=== PATIENT | female | born 1955 | race African-American/Black ===

== ENCOUNTER 2025-03-17 03:50 | Emergency (ER) | payer MEDICARE, MEDICAID ==
[~2025-03-17] VITALS: Ht 162.6 cm; Wt 63.0 kg
[2025-03-17 03:51] VITALS: BP 135/67; PULSE 67; RESP 16; TEMP 97.9; O2SAT 97
[2025-03-17] MEDS ORDERED: VALA500T33 PO (04:11)
--- NOTE | 2025-03-17 04:11 | ED.PDOC ---
General HPI Comments 69-year-old female presents to ER with vaginal complaint x1 week. Patient reports that she has been experiencing vaginal itching x3 days. Notes that she was diagnosed with genital herpes in 1989 and gets similar symptoms "twice a year" due to recurrent genital herpes that she states is treated with a 3 day course of valacyclovir. Denies any pain and presents to ER ambulatory, with steady gait, in no distress and notes she currently is not sexually active. Denies fever, body aches, chills, dysuria/changes in urination or any further symptoms/complaints Chief Complaint: Pelvic Pain Time Seen by MD: 03:58 Primary Care Provider: [facility] Reviewed notes: Nurses Notes, Medications, Allergies Allergies: Coded Allergies: NO KNOWN ALLERGIES (Unverified , 03/17/25) Home Meds Active Scripts Valacyclovir Hcl (Valacyclovir Hcl) 500 Mg Tab, 1 TAB PO BID for 3 Days, #6 TAB 0 Refills Prov:MATTJL HOLLIDAY 03/17/25 Information Source: Patient Mode of Arrival: Ambulatory Past Medical History Past Medical History (Other): Genital herpes- 1989 Surgical History: Denies all surgeries Family History Family History: Unknown Social History Smoker: Non-Smoker Alcohol: Denies ETOH Use Drugs: Denies Drug Use Lives In: Home Constitutional: denies: chills, diaphoresis, fatigue, fever, malaise, sweats, weakness, others EENTM: denies: blurred vision, double vision, ear bleeding, ear discharge, ear drainage, ear pain, ear ringing, eye pain, eye redness, hearing loss, mouth pain, mouth swelling, nasal discharge, nose bleeding, nose congestion, nose pain, photophobia, tearing, throat pain, throat swelling, voice changes, others Respiratory: denies: cough, hemoptysis, orthopnea, SOB at rest, shortness of breath, SOB with excertion, stridor, wheezing, others Cardiovascular: denies: chest pain, dizzy spells, diaphoresis, Dyspnea on exertion, edema, irregular heart beat, left arm pain, lightheadedness, palpitations, PND, syncope, others Gastrointestinal: denies: abdomen distended, abdominal pain, blood streaked bowels, constipated, diarrhea, dysphagia, difficulty swallowing, hematemesis, melena, nausea, poor appetite, poor fluid intake, rectal bleeding, rectal pain, vomiting, others Genitourinary: reports: others (As stated in HPI) Neurological: denies: dizziness, fainting, headache, left sided numbness, left sided weakness, numbness, paresthesia, pre-existing deficit, right sided numbness, right sided weakness, seizure, speech problems, tingling, tremors, weakness, others Musculoskeletal: denies: back pain, gout, joint pain, joint swelling, muscle pain, muscle stiffness, neck pain, others Integumetry: denies: bruises, change in color, change in hair/nails, dryness, laceration, lesions, lumps, rash, wounds, others Allergic/Immunocompromised: denies: Difficulty Healing, Frequent Infections, Hives, Itching, others Hematologic/Lymphatic: denies: anemia, blood clots, easy bleeding, easy bruising, swollen glands, others Endocrine: denies: excessive hunger, excessive sweating, excessive thirst, excessive urination, flushing, intolerance to cold, intolerance to heat, unexplained weight gain, unexplained weight loss, others Psychiatric: denies: anxiety, bipolar disorder, depression, hopeless, panic disorder, schizophrenia, sleepless, suicidal, others Physical Exam General Appearance: No Apparent Distress HEENT: PERRL/EOMI Neck: Full Range of Motion, Non-Tender, Normal Respiratory: Chest Non-Tender, Lungs Clear, No Accessory Muscle Use, No Respiratory Distress, Normal Breath Sounds Cardiovascular: No Murmur, No Gallop, Regular Rate/Rhythm Breast Exam: Deferred Gastrointestinal: Non Tender, No Pulsatile Mass, Soft Genitalia: Deferred Pelvic: Deferred Rectal: Deferred Extremities: Normal capillary refill, Normal range of motion Neurologic: Alert, resaw feeder II-XII nml as Tested, No Motor Deficits, Normal Affect, Normal Mood, No Sensory Deficits Cerebellar Function: Normal Reflexes: Normal Skin: Dry, Normal Color, Warm Lymphatic: No Adenopathy Was a procedure done? Was a procedure done?: No Sedation Sedation?: No Differential Diagnosis Kidney stone (Female): N/A Urinary Problem (Female): Pyelonephritis, Urinary retention, Urolithiasis, UTI, Vaginitis X-Ray, Labs, Meds, VS Vital Signs Date Time Temp Pulse Resp B/P (MAP) Pulse Ox O2 Delivery O2 Flow Rate FiO2 03/17/25 03:51 97.9 67 16 135/67 97 97.9 Lab Test 03/17/25 04:00 Range/Units Urine Color Light-yellow Yellow Urine Clarity Turbid H Clear Urine pH 5.5 5.0-9.0 Urine Specific [place] 1.019 1.001-1.035 Urine Protein Negative Negative Urine Ketones Negative Negative Urine Blood Negative Negative /uL Urine Nitrite Negative Negative Urine Bilirubin Negative Negative Urine Urobilinogen Normal Negative mg/dL Urine Leukocyte Esterase Negative Negative /uL Urine RBC None seen 0 - 4 /hpf Urine Microscopic WBC < 1 0-5 /HPF Urine Squamous Epithelial Cells Few <5 /hpf Urine Bacteria None seen None Seen /hpf Urine Glucose Normal Normal mg/dL Urinalysis reviewed without any significant abnormalities Advised to drink plenty of fluids Advised to follow up with PCP in 1-2 days Patient verbalized understanding and agreeable with current plan of care Advised to return to ER immediately if symptoms worsen Time of 1ST Reevaluation: 03:58 Reevaluation 1ST: N/A Patient Education/Counseling: Diagnosis, Treatment, Prognosis, Need For Follow Up Family Education/Counseling: No Family Present SEPSIS Sepsis Screen Date sepsis recognized/suspect: Mar 17, 2025 Time Sepsis recognized/suspect: 350 Recent Procedure: No On Antibiotic Therapy: No Respiratory Rate >20: No Heart Rate >90: No Temp<36 C (96.8 F) or >38.3 C: No SBP <90 or MAP <65 mmHG: No New Acute Mental Status Change: No Is the patient on CPAP, BIPAP,: No Vital Signs Date Time Temp Pulse Resp B/P (MAP) Pulse Ox O2 Delivery O2 Flow Rate FiO2 03/17/25 03:51 97.9 67 16 135/67 97 97.9 Departure 1 Departure Time of Disposition: 04:08 Impression: Primary Impression: Recurrent genital herpes Disposition: 01 HOME / SELF CARE / HOMELESS Condition: Stable e-Prescriptions Valacyclovir Hcl (Valacyclovir Hcl) 500 Mg Tab 1 TAB PO BID for 3 Days, #6 TAB 0 Refills Prov: JL GUTIERREZ 03/17/25 Discharged With: Self Critical Care Note Critical Care Time?: No Stability Stability form required: No Heart Score Heart Score: Heart Score Response (Comments) Value History N/A 0 EKG N/A 0 Age N/A 0 Risk Factors N/A 0 Troponin N/A 0 Total 0 JL GUTIERREZ Mar 17, 2025 04:11
[2025-03-17 04:35] LABS: Urine Protein, UAD Negative (Negative)
== END 2025-03-17 05:06 | disposition home or self-care (01) ==
LOC: ER 03:50
DX: A60.09 Herpesviral infection of other urogenital tract (principal); Z79.899 Other long term (current) drug therapy
CPT/HCPCS: 81001

== ENCOUNTER 2025-06-21 05:19 | Emergency (ER) | payer MEDICARE, MEDICAID ==
[~2025-06-21] VITALS: Ht 162.6 cm; Wt 64.5 kg
[~2025-06-21 05:19] MED LIST: VALA500T33 PO
--- NOTE | 2025-06-21 06:28 | DVH ---
EXAM: XY R KNEE 3V XRAY HISTORY: right knee pain COMPARISON: None TECHNIQUE: 3 views of the right knee were performed. FINDINGS: No acute fracture is identified about the right knee. No significant joint space narrowing. There is a small knee joint effusion. IMPRESSION: 1. No acute osseous abnormality. 2. Small knee joint effusion.
[2025-06-21 06:39] LABS: Hematocrit 38.4 % (36.0-46.0); Hemoglobin 13.4 g/dL (12.2-16.2); Mean Corpuscular Hemoglobin 29.2 pg (28.0-32.0); Mean Corpuscular Volume 83.9 fL (80.0-100.0); Nucleated Red Blood Cells % 0.2 %
[2025-06-21] MEDS ORDERED: DICL1GEL59 EX (07:01)
--- NOTE | 2025-06-21 07:02 | ED.PDOC ---
Musculoskeletal HPI Comments This is a pleasant 70-year-old female that presents with a MHx with a chief complaint of acute atraumatic right-sided knee pain She reports she has been experiencing rates it a knee pain since the summer with a an increase in intensity since May. The pain is exacerbated by cold weather and certain movements such as kneeling and walk. The pain is primarily located to the right knee and extends to the calf and thigh resembling a muscle cramp and that it is exacerbated with movement. Patient has not been taking medication for the symptoms noted above but has been using Epsom salt for relief. Able to bear weight on the leg Denies trauma to the knee or recent fall Denies skin color changes around the knee Denies masses around the knee Denies popping/locking/giving out of the knee Denies fever chills night sweats nausea vomiting Denies previous surgeries to the knee nor significant injury Chief Complaint: Lower Extremity Time Seen by MD: 06:28 Primary Care Provider: [facility] Reviewed Notes: Nurses Notes, Medications, Allergies Allergies: Coded Allergies: NO KNOWN ALLERGIES (Unverified , 03/17/25) Home Meds Active Scripts Valacyclovir Hcl (Valacyclovir Hcl) 500 Mg Tab, 1 TAB PO BID for 3 Days, #6 TAB 0 Refills Prov:JL GUTIERREZ 03/17/25 Information Source: Patient Mode of Arrival: Ambulatory Past Medical History PAST MEDICAL HISTORY: Denies Surgical History: Denies all surgeries EXCHANGE ENGINEER History: No Pertinent EXCHANGE ENGINEER History Family History Family History: Reviewed,noncontributory to illness, Unknown Social History Smoker: Non-Smoker Alcohol: Denies ETOH Use Drugs: Denies Drug Use Lives In: Home All Other Systems: Reviewed and Negative Physical Exam General Appearance: No Apparent Distress, Normal HEENT: Normal ENT Inspection, Pharynx Normal, TMs Normal Neck: Full Range of Motion, Non-Tender, Normal, Normal Inspection Respiratory: Chest Non-Tender, Lungs Clear, No Accessory Muscle Use, No Respiratory Distress, Normal Breath Sounds Cardiovascular: No Edema, No JVD, No Murmur, No Gallop, Normal Peripheral Pulses, Regular Rate/Rhythm Breast Exam: Deferred Gastrointestinal: No Organomegaly, Non Tender, No Pulsatile Mass, Normal Bowel Sounds, Soft Genitalia: Deferred Pelvic: Deferred Rectal: Deferred Extremities: No calf tenderness, Normal capillary refill, Normal inspection, Normal range of motion, Non-tender, No pedal edema Musculoskeletal : Location: Right Extremity Location: Knee (No deformity. No erythema. No crepitus with flexion-extension. No TTP. No joint instability. Neurovascular sensation intact) Apperance: Normal Neurologic: Alert, bowling ball mold assembler II-XII nml as Tested, No Motor Deficits, Normal Affect, Normal Mood, No Sensory Deficits Cerebellar Function: Normal Reflexes: Normal Skin: Dry, Normal Color, Warm Lymphatic: No Adenopathy Was a procedure done? Was a procedure done?: No Differential Diagnosis EXT Differential Diagnosis: Fracture, Sprain, Dislocation X-Ray, Labs, Meds, VS Vital Signs Date Time Temp Pulse Resp B/P (MAP) Pulse Ox O2 Delivery O2 Flow Rate FiO2 06/21/25 05:20 97.4 71 18 103/71 96 97.4 Lab Test 06/21/25 05:45 Range/Units White Blood Count 2.9 L 4.4-10.8 10^3/uL Red Blood Count 4.57 4.0-5.20 10^6/uL Hemoglobin 13.4 12.2-16.2 g/dL Hematocrit 38.4 36.0-46.0 % Mean Corpuscular Volume 83.9 80.0-100.0 fL Mean Corpuscular Hemoglobin 29.2 28.0-32.0 pg Mean Corpuscular Hemoglobin Concent 34.8 32.0-36.0 g/dL Red Cell Distribution Width 14.0 11.8-14.3 % Platelet Count 280 140-450 10^3/uL Mean Platelet Volume 7.4 6.9-10.8 fL Neutrophils (%) (Auto) 55.7 37.0-80.0 % Lymphocytes (%) (Auto) 26.8 10.0-50.0 % Monocytes (%) (Auto) 10.0 0.0-12.0 % Eosinophils (%) (Auto) 5.6 0.0-7.0 % Basophils (%) (Auto) 1.9 0.0-2.0 % Neutrophils # (Auto) 1.6 1.6-8.6 10 ^3/uL Lymphocytes # (Auto) 0.8 0.4-5.4 10 ^3/uL Monocytes # (Auto) 0.3 0-1.3 10 ^3/uL Eosinophils # (Auto) 0.2 0-0.8 10 ^3/uL Basophils # (Auto) 0.1 0-0.2 10 ^3/uL Nucleated Red Blood Cells 0.2 % PATIENT: OLGA MCGUIRE ACCT: [id number] UNIT: [id number] : 1955 LOC: ER ROOM / BED: / AGE / SEX: 70 / F ADM STATUS: REG ER SERVICE 8 ORDERING PHYSICIAN: JL GUTIERREZ PROCEDURE(s): RKN3 - R KNEE 3V XRAY REASON: right knee pain ORDER NUMBER(s): [id number], ACCESSION NUMBER(s): [id number] EXAM: XY R KNEE 3V XRAY HISTORY: right knee pain COMPARISON: None TECHNIQUE: 3 views of the right knee were performed. FINDINGS: No acute fracture is identified about the right knee. No significant joint space narrowing. There is a small knee joint effusion. IMPRESSION: 1. No acute osseous abnormality. 2. Small knee joint effusion. ATED BY: ISMAEL VASQUEZ MD DICTATED DATE/TIME: 06/21/25624 SIGNED BY: ISMAEL VASQUEZ MD SIGNED DATE/TIME: 06/21/25624 CC: X-Ray, Labs, Meds, VS Comment Patient arrives alert and oriented, ABC's intact, afebrile, vital signs stable, saturating well in room air. CBC was ordered to exclude anemia, blood loss, or infection. Diagnostic imaging ordered by me and results interpreted by radiology : IMPRESSION: 1. No acute osseous abnormality. 2. Small knee joint effusion. Today symptoms are consistent with acute internal derangement of the left knee Prescribed NSAIDs for the management of acute knee pain. Take ibuprofen p.o. 600 mg every 8 hours with food as needed for pain Recommend light walking under the sun for 30 minutes a day Avoiding running jogging high-impact activities Stretch as tolerated Ice 3x/day for 5 minutes Wear knee brace for stability as needed, elevate leg swelling aggravated On reevaluation, patient had symptomatic improvement. Patient is stable for discharge at this time. External notes reviewed. Test results and diagnostic imaging interpreted. All diagnostic findings, discharge care, education and instructions provided Follow-up with PCP in 2 to 3 days Patient verbalized understanding and agreed to treatment plan Vital signs stable, afebrile, no acute distress noted Patient ambulatory with strong steady gait Advised to return precautions for any new or worsening symptoms, return to ER immediately for re-evaluation Patient is aware that the purpose of this visit was for an acute medical e mergency requiring emergent stabilization. Chronic conditions, including malignancies have not been ruled out. Patient is instructed to follow up with PCP as directed and discharge instructions for continued care and workup. If unable to arrange follow-up, patient is to return to the emergency department for reassessment. Patient (parent or legal guardian if applicable) was given verbal and written discharge instructions and acknowledges understanding. Additional MDM Review of External, Non-ED records: External records reviewed. Discussion with independent historian (EMS, family) history obtained from the patient/parents (if applicable) at bedside Chronic conditions affecting care: None Social determinants of health affecting care: None Consideration of admission (observation or admission): I considered escalation of care to admission for this patient, however given the reassuring workup, the patient is safe for outpatient management. Discussion with the Radiology: No Tests considered but not performed: Prescription medication considered but not given: Time of 1ST Reevaluation: 06:59 Reevaluation 1ST: Improved Patient Education/Counseling: Diagnosis, Treatment Family Education/Counseling: Diagnosis, Treatment Departure 1 Departure Time of Disposition: 07:00 Impression: Primary Impression: Knee pain Qualified Codes: M25.561 - Pain in right knee; G89.29 - Other chronic pain Disposition: HOME / SELF CARE / HOMELESS Condition: Stable e-Prescriptions Diclofenac Sodium (Topical) (Voltaren Arthritis Pain) 1 % Gel 4 GRAMS EX QIDP PRN for 30 Days, #60 GEL 0 Refills Prov: JEROME CHAMBERLAIN NP 06/21/25 Critical Care Note Critical Care Time?: No Stability Stability form required: No Heart Score Heart Score: Heart Score Response (Comments) Value History N/A 0 EKG N/A 0 Age N/A 0 Risk Factors N/A 0 Troponin N/A 0 Total 0 JEROME CHAMBERLAIN NP Jun 21, 2025 07:02
[2025-06-21 07:21] VITALS: BP 108/72; PULSE 68; RESP 16; TEMP 98.6; O2SAT 98
== END 2025-06-21 07:23 | disposition home or self-care (01) ==
LOC: ER 05:19
DX: M25.561 Pain in right knee (principal); Z79.624 Long term (current) use of inhibitors of nucleotide synthesis
CPT/HCPCS: 36415; 73562; 85025